=== PATIENT | male | born 1995 | race Two or more races ===

== ENCOUNTER 2024-11-07 05:01 | Emergency (ER) | payer OTHER ==
[~2024-11-07] VITALS: Ht 180.3 cm; Wt 99.8 kg
[2024-11-07 06:03] VITALS: BP 122/76; O2SAT 99
== END 2024-11-07 06:42 | disposition home or self-care (01) ==
LOC: ER 05:23
DX: S93.492A Sprain of other ligament of left ankle, initial encounter (principal); W18.39XA Other fall on same level, initial encounter; Y93.89 Activity, other specified; Y92.89 Other specified places as the place of occurrence of the external cause; Y99.8 Other external cause status
CPT/HCPCS: 73610; 73630; A4606; A4663